=== PATIENT | female | born 1980 | race Caucasian/White ===

== ENCOUNTER 2018-03-23 13:53 | Emergency (ER) | payer BC, OTHER ==
--- NOTE | 2018-03-23 14:13 | EDPHY ---
H & P Time Seen by Provider: 03/23/18 13:55 HPI/ROS: CHIEF COMPLAINT: Tailbone injury HISTORY OF PRESENT ILLNESS: The patient is a 37-year-old female who presents emergency department after falling on her tailbone. The patient was snowboarding when she fell on her buttocks. She states her pain is isolated and moderate. It is worse with movement. Patient has had no incontinence of urine or stool. She has not had a bowel movement since the injury. Patient denies any rectal bleeding. No abdominal pain. No nausea vomiting. No numbness or weakness. REVIEW OF SYSTEMS: 10 systems were reveiwed and are negative with the exception of the elements mentioned in the history of present illness. Past Medical/Surgical History: Includes previous tailbone bruise, IUD in place Smoking Status: Never smoked Physical Exam: Vitals noted GENERAL: Well-appearing, in no acute distress, alert. HEENT: Normal appearing. NECK: Normal, supple. No tenderness to palpation. Nexus negative. RESPIRATORY: No respiratory distress. CVS: Well-perfused. Regular pulse. ABDOMEN: Soft, nontender. BACK: Patient has mild tenderness palpation over her sacrum. There is no lumbar or thoracic tenderness to palpation. No palpable deformity.. SKIN: Normal color, no rash, warm, dry. No pallor. EXTREMITIES: No pedal edema, no calf tenderness, no Homans sign or cords, no joint swelling. Neurovascularly intact distally. NEURO/PSYCH: Alert and oriented, normal mood and affect, normal motor sensory exam. No obvious cranial nerve deficit. Constitutional: Initial Vital Signs Heart Rate 74 03/23/18 13:57 Respiratory Rate 18 03/23/18 13:57 Blood Pressure 107/72 03/23/18 13:57 O2 Sat (%) 96 03/23/18 13:57 O2 Delivery Mode Room Air Allergies/Adverse Reactions: doxycycline Allergy (Verified 03/23/18 14:01) Penicillins Allergy (Verified 03/23/18 14:01) Home Medications: Medication Instructions Recorded Docusate Sodium [Colace 100 MG (*)] 100 mg PO BID 5 Days cap 03/23/18 oxyCODONE/APAP 5/325 [Percocet 1 - 2 tab PO Q4PRN PRN #11 tab 03/23/18 5/325 (*)] Medical Decision Making - Diagnostics Imaging Results: Imaging Impressions Sacrum and Coccyx X-Ray 03/23/18 14:17 Impression: Transverse fracture through third sacral segment with 3 mm of anterior displacement. ED Course/Re-evaluation: In the emergency department I discussed possible etiologies with the patient. I answered all her questions. The patient states she has an IUD in place and there is no chance she was . She does not want a test prior to imaging. She consents to imaging study. The coccyx study was ordered. Sacral x-ray: Please refer the dictated report by Dr. Bailey. Patient does have a transverse fracture through or sacral at S3. I discussed the results with Dr. Frederick from Orthopedic surgery. He recommended outpatient follow-up. Patient is weight-bearing as tolerated. She was given crutches for comfort. Differential Diagnosis: My differential includes but is not limited to coccyx fracture, sacral fracture , pelvic fracture, rectal perforation, contusion Departure - Departure Disposition: Home, Routine, Self-Care Clinical Impression: Sacral fracture Qualifiers: Encounter type: initial encounter Zone of sacrum fracture: unspecified portion of sacrum Fracture type: closed Qualified Code(s): S32.10XA - Unspecified fracture of sacrum, initial encounter for closed fracture Condition: Good Instructions: Sacral Fracture (ED) Additional Instructions: You have a fracture in your sacrum. You can bear weight as tolerated. Use your crutches as needed. Follow-up with Dr. Frederick. Call to make an appt in 1- 2 weeks. Use Metamucil as a stool softener. Referrals: Adams Frederick MD [Medical Doctor] - 5-7 days, call for appt. Prescriptions: Docusate Sodium [Colace 100 MG (*)] 100 mg PO BID 5 Days cap oxyCODONE/APAP 5/325 [Percocet 5/325 (*)] 1 - 2 tab PO Q4PRN PRN #11 tab PRN Reason: For Moderate To Severe Pain
[2018-03-23] MEDS ORDERED: OXYCODONE/APAP 5/325 TAB PO ONE (15:39)
[2018-03-23] MEDS ORDERED: IBUPROFEN 800 MG TAB PO ONE (15:39)
[2018-03-23 16:19] VITALS: BP 117/66
== END 2018-03-23 16:19 | disposition home or self-care (01) ==
LOC: EDUNIT# → EDBD
DX: S32.10XA Unspecified fracture of sacrum, initial encounter for closed fracture (principal); V00.311A Fall from snowboard, initial encounter; Y93.23 Activity, snow (alpine) (downhill) skiing, snowboarding, sledding, tobogganing and snow tubing; Y92.828 Other wilderness area as the place of occurrence of the external cause; Y99.8 Other external cause status